=== PATIENT | female | born 1970 | race Caucasian/White ===

== ENCOUNTER 2023-06-18 08:34 | Outpatient (RCR) | payer OTHER, SELFPAY ==
[2023-05-28] VITALS (12 sets, daily range): BP systolic 107–125; BP diastolic 71–88
[2023-05-28] MEDS: GAMMAGARD 100 IV ×7 (10:11→13:48)
[2023-05-28] MEDS: NSS 500 IV (10:15)
[2023-05-28 10:43] LABS: Blood Urea Nitrogen 13 mg/dl (7-17); Calcium 9.4 mg/dl (8.4-10.2); Carbon Dioxide 23 mmol/L (22-30); Chloride 104 mmol/L (98-107); Glucose 108 mg/dl (70-99); Potassium 4.1 mmol/L (3.5-5.1); Sodium 137 mmol/L (135-145); eGFR > 60.00
[2023-06-18] VITALS (11 sets, daily range): BP systolic 94–131; BP diastolic 52–72
[2023-06-18] MEDS: NSS 500 IV (09:08)
[2023-06-18] MEDS: GAMMAGARD 100 IV ×7 (09:10→13:25)
[2023-06-18 10:14] LABS: Blood Urea Nitrogen 15 mg/dl (7-17); Calcium 9.3 mg/dl (8.4-10.2); Carbon Dioxide 25 mmol/L (22-30); Chloride 103 mmol/L (98-107); Glucose 96 mg/dl (70-99); Potassium 4.3 mmol/L (3.5-5.1); Sodium 134 mmol/L (135-145); eGFR > 60.00
== END 2023-06-19 10:27 | disposition home or self-care (01) ==
LOC: OID 08:34
PROVIDERS: ATTENDING PHYSICIAN Specialist; FAMILY PHYSICIAN Family Medicine
DX: G61.81 Chronic inflammatory demyelinating polyneuritis (principal)
CPT/HCPCS: 36415; 80048; 96365; 96366; J1569

== ENCOUNTER 2023-07-09 08:33 | Outpatient (RCR) | payer OTHER, SELFPAY ==
[2023-07-09] VITALS (12 sets, daily range): BP systolic 102–138; BP diastolic 44–77
[2023-07-09] MEDS: NSS 500 IV (09:00)
[2023-07-09] MEDS: GAMMAGARD 100 IV ×7 (09:13→13:25)
[2023-07-09 09:40] LABS: Blood Urea Nitrogen 14 mg/dl (7-17); Calcium 8.8 mg/dl (8.4-10.2); Carbon Dioxide 20 mmol/L (22-30); Chloride 104 mmol/L (98-107); Glucose 102 mg/dl (70-99); Potassium 3.9 mmol/L (3.5-5.1); Sodium 133 mmol/L (135-145); eGFR > 60.00
== END 2023-07-10 09:43 | disposition home or self-care (01) ==
LOC: OID 08:33
PROVIDERS: ATTENDING PHYSICIAN Specialist; FAMILY PHYSICIAN Family Medicine
DX: G61.81 Chronic inflammatory demyelinating polyneuritis (principal)
CPT/HCPCS: 80048; 96365; 96366; J1569

== ENCOUNTER 2023-08-20 10:03 | Outpatient (RCR) | payer OTHER, SELFPAY ==
[2023-07-30] VITALS (12 sets, daily range): BP systolic 113–156; BP diastolic 66–86
[2023-07-30] MEDS: NSS 500 IV (09:05)
[2023-07-30] MEDS: GAMMAGARD 100 IV ×7 (09:06→13:18)
[2023-07-30 09:38] LABS: Blood Urea Nitrogen 11 mg/dl (7-17); Calcium 9.1 mg/dl (8.4-10.2); Carbon Dioxide 22 mmol/L (22-30); Chloride 106 mmol/L (98-107); Glucose 104 mg/dl (70-99); Sodium 134 mmol/L (135-145); eGFR > 60.00
[2023-08-20] VITALS (12 sets, daily range): BP systolic 92–136; BP diastolic 55–89
[2023-08-20] MEDS: NSS 500 IV (10:42)
[2023-08-20] MEDS: GAMMAGARD 100 IV ×7 (10:43→15:08)
[2023-08-20 11:25] LABS: Blood Urea Nitrogen 12 mg/dl (7-17); Calcium 9.7 mg/dl (8.4-10.2); Carbon Dioxide 23 mmol/L (22-30); Chloride 104 mmol/L (98-107); Glucose 96 mg/dl (70-99); Potassium 4.3 mmol/L (3.5-5.1); Sodium 135 mmol/L (135-145); eGFR > 60.00
== END 2023-08-20 23:59 | disposition home or self-care (01) ==
LOC: OID 10:03
PROVIDERS: ATTENDING PHYSICIAN Specialist; FAMILY PHYSICIAN Family Medicine
DX: G61.81 Chronic inflammatory demyelinating polyneuritis (principal)
CPT/HCPCS: 36415; 80048; 96365; 96366; J1569

== ENCOUNTER 2023-09-10 08:34 | Outpatient (RCR) | payer OTHER, SELFPAY ==
[2023-09-10] VITALS (12 sets, daily range): BP systolic 94–113; BP diastolic 46–85
[2023-09-10] MEDS: NSS 500 IV (09:00)
[2023-09-10] MEDS: GAMMAGARD 100 IV ×7 (09:10→13:15)
[2023-09-10 09:54] LABS: Blood Urea Nitrogen 11 mg/dl (7-17); Calcium 9.5 mg/dl (8.4-10.2); Carbon Dioxide 22 mmol/L (22-30); Chloride 103 mmol/L (98-107); Glucose 102 mg/dl (70-99); Potassium 4.4 mmol/L (3.5-5.1); Sodium 135 mmol/L (135-145); eGFR > 60.00
== END 2023-09-11 09:00 | disposition home or self-care (01) ==
LOC: OID 08:34
PROVIDERS: ATTENDING PHYSICIAN Specialist; FAMILY PHYSICIAN Family Medicine
DX: G61.81 Chronic inflammatory demyelinating polyneuritis (principal)
CPT/HCPCS: 36415; 80048; 96365; 96366; J1569

== ENCOUNTER 2023-10-07 08:15 | Outpatient (RCR) | payer OTHER, SELFPAY ==
[2023-10-07] VITALS (12 sets, daily range): BP systolic 99–122; BP diastolic 64–91
[2023-10-07] MEDS: NSS 500 IV (08:52)
[2023-10-07] MEDS: GAMMAGARD 100 IV ×7 (08:53→13:04)
[2023-10-07 10:29] LABS: Blood Urea Nitrogen 15 mg/dl (7-17); Carbon Dioxide 24 mmol/L (22-30); Chloride 105 mmol/L (98-107); Glucose 101 mg/dl (70-99); Potassium 3.9 mmol/L (3.5-5.1); Sodium 136 mmol/L (135-145); eGFR > 60.00
== END 2023-10-08 09:37 | disposition home or self-care (01) ==
LOC: OID 08:15
PROVIDERS: ATTENDING PHYSICIAN Specialist; FAMILY PHYSICIAN Family Medicine
DX: G61.81 Chronic inflammatory demyelinating polyneuritis (principal)
CPT/HCPCS: 36415; 80048; 96365; 96366; J1569

== ENCOUNTER 2023-10-28 08:35 | Outpatient (RCR) | payer OTHER, SELFPAY ==
[2023-10-28] VITALS (11 sets, daily range): BP systolic 100–130; BP diastolic 66–83
[2023-10-28] MEDS: NSS 500 IV (09:07)
[2023-10-28] MEDS: GAMMAGARD 100 IV ×7 (09:10→13:10)
[2023-10-28 10:31] LABS: Blood Urea Nitrogen 15 mg/dl (7-17); Calcium 9.5 mg/dl (8.4-10.2); Carbon Dioxide 24 mmol/L (22-30); Chloride 101 mmol/L (98-107); Glucose 98 mg/dl (70-99); Potassium 4.5 mmol/L (3.5-5.1); Sodium 133 mmol/L (135-145); eGFR > 60.00
== END 2023-10-29 09:27 | disposition home or self-care (01) ==
LOC: OID 08:35
PROVIDERS: ATTENDING PHYSICIAN Specialist; FAMILY PHYSICIAN Family Medicine
DX: G61.81 Chronic inflammatory demyelinating polyneuritis (principal)
CPT/HCPCS: 80048; 96361; 96365; 96366; J1569

== ENCOUNTER 2023-12-16 08:30 | Outpatient (RCR) | payer OTHER, SELFPAY ==
[2023-11-25] VITALS (12 sets, daily range): BP systolic 100–119; BP diastolic 63–85
[2023-11-25] MEDS: NSS 500 IV (09:00)
[2023-11-25] MEDS: GAMMAGARD 100 IV ×7 (09:04→13:10)
[2023-12-16] VITALS (11 sets, daily range): BP systolic 92–123; BP diastolic 63–86
[2023-12-16] MEDS: NSS 500 IV (09:14)
[2023-12-16] MEDS: GAMMAGARD 100 IV ×7 (09:18→13:24)
[2023-12-16 10:12] LABS: Blood Urea Nitrogen 10 mg/dl (7-17); Calcium 9.6 mg/dl (8.4-10.2); Carbon Dioxide 22 mmol/L (22-30); Chloride 104 mmol/L (98-107); Glucose 101 mg/dl (70-99); Sodium 138 mmol/L (135-145); eGFR > 60.00
== END 2023-12-17 08:59 | disposition home or self-care (01) ==
LOC: OID 08:30
PROVIDERS: ATTENDING PHYSICIAN Specialist; FAMILY PHYSICIAN Family Medicine
DX: G61.81 Chronic inflammatory demyelinating polyneuritis (principal)
CPT/HCPCS: 80048; 96361; 96365; 96366; J1569

== ENCOUNTER 2024-01-06 08:29 | Outpatient (RCR) | payer OTHER, SELFPAY ==
[2024-01-06] VITALS (11 sets, daily range): BP systolic 98–120; BP diastolic 55–80; BMI 23.9
[2024-01-06] MEDS: NSS 500 IV (08:50)
[2024-01-06] MEDS: GAMMAGARD 100 IV ×7 (08:59→13:03)
== END 2024-01-07 10:27 | disposition home or self-care (01) ==
LOC: OID 08:29
PROVIDERS: ATTENDING PHYSICIAN Specialist; FAMILY PHYSICIAN Family Medicine
DX: G61.81 Chronic inflammatory demyelinating polyneuritis (principal)
CPT/HCPCS: 96361; 96365; 96366; J1569

== ENCOUNTER 2024-02-17 08:32 | Outpatient (RCR) | payer OTHER, SELFPAY ==
[2024-01-27] VITALS (12 sets, daily range): BP systolic 81–114; BP diastolic 55–72
[2024-01-27] MEDS: NSS 500 IV (09:59)
[2024-01-27] MEDS: GAMMAGARD 100 IV ×7 (10:00→14:14)
[2024-01-27 10:34] LABS: Blood Urea Nitrogen 14 mg/dl (7-17); Calcium 9.4 mg/dl (8.4-10.2); Carbon Dioxide 24 mmol/L (22-30); Chloride 102 mmol/L (98-107); Glucose 105 mg/dl (70-99); Potassium 4.4 mmol/L (3.5-5.1); Sodium 139 mmol/L (135-145); eGFR > 60.00
[2024-02-17] VITALS (12 sets, daily range): BP systolic 88–108; BP diastolic 54–76
[2024-02-17] MEDS: NSS 500 IV (08:57)
[2024-02-17] MEDS: GAMMAGARD 100 IV ×7 (08:58→13:06)
== END 2024-02-18 08:47 | disposition home or self-care (01) ==
LOC: OID 08:32
PROVIDERS: ATTENDING PHYSICIAN Specialist; FAMILY PHYSICIAN Family Medicine
DX: G61.81 Chronic inflammatory demyelinating polyneuritis (principal)
CPT/HCPCS: 80048; 96365; 96366; J1569

== ENCOUNTER 2024-03-09 08:27 | Outpatient (RCR) | payer OTHER, SELFPAY ==
[2024-03-09] VITALS (12 sets, daily range): BP systolic 90–121; BP diastolic 46–74
[2024-03-09] MEDS: NSS 500 IV (09:07)
[2024-03-09] MEDS: GAMMAGARD 100 IV ×7 (09:08→13:22)
[2024-03-09 09:38] LABS: Blood Urea Nitrogen 13 mg/dl (7-17); Calcium 9.3 mg/dl (8.4-10.2); Carbon Dioxide 21 mmol/L (22-30); Chloride 104 mmol/L (98-107); Glucose 100 mg/dl (70-99); Potassium 4.6 mmol/L (3.5-5.1); Sodium 140 mmol/L (135-145); eGFR > 60.00
== END 2024-03-10 08:37 | disposition home or self-care (01) ==
LOC: OID 08:27
PROVIDERS: ATTENDING PHYSICIAN Specialist; FAMILY PHYSICIAN Family Medicine
DX: G61.81 Chronic inflammatory demyelinating polyneuritis (principal)
CPT/HCPCS: 36415; 80048; 96365; 96366; J1569

== ENCOUNTER 2024-04-20 08:39 | Outpatient (RCR) | payer OTHER, SELFPAY ==
[2024-03-30] VITALS (11 sets, daily range): BP systolic 85–110; BP diastolic 58–81
[2024-03-30] MEDS: NSS 500 IV (09:09)
[2024-03-30] MEDS: GAMMAGARD 100 IV ×7 (09:09→13:08)
[2024-04-20] VITALS (12 sets, daily range): BP systolic 95–107; BP diastolic 50–76
[2024-04-20] MEDS: NSS 500 IV (09:09)
[2024-04-20] MEDS: GAMMAGARD 100 IV ×7 (09:10→13:32)
[2024-04-20 10:30] LABS: Blood Urea Nitrogen 14 mg/dl (7-17); Calcium 8.9 mg/dl (8.4-10.2); Carbon Dioxide 20 mmol/L (22-30); Chloride 103 mmol/L (98-107); Glucose 92 mg/dl (70-99); Sodium 136 mmol/L (135-145); eGFR > 60.00
[2024-04-20 10:34] LABS: Potassium 4.4 mmol/L (3.5-5.1)
== END 2024-04-21 15:35 | disposition home or self-care (01) ==
LOC: OID 08:39
PROVIDERS: ATTENDING PHYSICIAN Specialist; FAMILY PHYSICIAN Family Medicine
DX: G61.81 Chronic inflammatory demyelinating polyneuritis (principal)
CPT/HCPCS: 80048; 96365; 96366; J1569

== ENCOUNTER 2024-05-11 08:57 | Outpatient (RCR) | payer OTHER, SELFPAY ==
[2024-05-11] VITALS (12 sets, daily range): BP systolic 91–120; BP diastolic 46–68
[2024-05-11] MEDS: GAMMAGARD 100 IV ×7 (09:30→13:30)
== END 2024-05-22 23:59 | disposition home or self-care (01) ==
LOC: OID 08:57
PROVIDERS: ATTENDING PHYSICIAN Specialist; FAMILY PHYSICIAN Family Medicine
DX: G61.81 Chronic inflammatory demyelinating polyneuritis (principal)
CPT/HCPCS: 96365; 96366; J1569

== ENCOUNTER 2024-06-01 08:32 | Outpatient (RCR) | payer OTHER, SELFPAY ==
[2024-06-01] VITALS (12 sets, daily range): BP systolic 97–105; BP diastolic 50–79
[2024-06-01] MEDS: NSS 500 IV (09:03)
[2024-06-01] MEDS: GAMMAGARD 100 IV ×7 (09:04→13:06)
[2024-06-01 10:06] LABS: Blood Urea Nitrogen 16 mg/dl (7-17); Calcium 9.3 mg/dl (8.4-10.2); Carbon Dioxide 24 mmol/L (22-30); Chloride 103 mmol/L (98-107); Glucose 96 mg/dl (70-99); Potassium 4.6 mmol/L (3.5-5.1); Sodium 137 mmol/L (135-145); eGFR > 60.00
== END 2024-06-02 09:33 | disposition home or self-care (01) ==
LOC: OID 08:32
PROVIDERS: ATTENDING PHYSICIAN Specialist; FAMILY PHYSICIAN Family Medicine
DX: G61.81 Chronic inflammatory demyelinating polyneuritis (principal)
CPT/HCPCS: 80048; 96365; 96366; J1569

== ENCOUNTER 2024-07-13 08:42 | Outpatient (RCR) | payer OTHER, SELFPAY ==
[2024-06-22] VITALS (11 sets, daily range): BP systolic 96–111; BP diastolic 64–83
[2024-06-22] MEDS: NSS 500 IV (09:01)
[2024-06-22] MEDS: GAMMAGARD 100 IV ×7 (09:02→13:07)
[2024-07-13] VITALS (11 sets, daily range): BP systolic 79–113; BP diastolic 52–71
[2024-07-13] MEDS: NSS 500 IV (09:00)
[2024-07-13] MEDS: GAMMAGARD 100 IV ×7 (09:09→13:19)
[2024-07-13 13:16] LABS: Blood Urea Nitrogen 16 mg/dl (7-17); Calcium 9.5 mg/dl (8.4-10.2); Carbon Dioxide 22 mmol/L (22-30); Chloride 107 mmol/L (98-107); Glucose 99 mg/dl (70-99); Potassium 4.2 mmol/L (3.5-5.1); Sodium 139 mmol/L (135-145); eGFR > 60.00
== END 2024-07-14 08:31 | disposition home or self-care (01) ==
LOC: OID 08:42
PROVIDERS: ATTENDING PHYSICIAN Specialist; FAMILY PHYSICIAN Family Medicine
DX: G61.81 Chronic inflammatory demyelinating polyneuritis (principal)
CPT/HCPCS: 80048; 96365; 96366; J1569

== ENCOUNTER 2024-08-03 08:35 | Outpatient (RCR) | payer OTHER, SELFPAY ==
[2024-08-03] VITALS (13 sets, daily range): BP systolic 96–115; BP diastolic 47–71
[2024-08-03] MEDS: GAMMAGARD 100 IV ×7 (09:04→13:22)
[2024-08-03] MEDS: NSS 500 IV (09:04)
== END 2024-08-04 11:18 | disposition home or self-care (01) ==
LOC: OID 08:35
PROVIDERS: ATTENDING PHYSICIAN Specialist; FAMILY PHYSICIAN Family Medicine
DX: G61.81 Chronic inflammatory demyelinating polyneuritis (principal)
CPT/HCPCS: 96365; 96366; J1569

== ENCOUNTER 2024-09-15 08:43 | Outpatient (RCR) | payer OTHER, SELFPAY ==
[2024-08-26] VITALS (13 sets, daily range): BP systolic 99–123; BP diastolic 56–91
[2024-08-26] MEDS: NSS 500 IV (09:02)
[2024-08-26] MEDS: GAMMAGARD 100 IV ×7 (09:08→13:29)
[2024-08-26 10:19] LABS: Blood Urea Nitrogen 15 mg/dl (7-17); Calcium 9.4 mg/dl (8.4-10.2); Carbon Dioxide 25 mmol/L (22-30); Chloride 105 mmol/L (98-107); Glucose 93 mg/dl (70-99); Potassium 4.4 mmol/L (3.5-5.1); Sodium 138 mmol/L (135-145); eGFR > 60.00
[2024-09-15] VITALS (10 sets, daily range): BP systolic 97–109; BP diastolic 40–65
[2024-09-15] MEDS: NSS 500 IV (09:09)
[2024-09-15] MEDS: GAMMAGARD 100 IV ×7 (09:10→13:18)
== END 2024-09-16 11:32 | disposition home or self-care (01) ==
LOC: OID 08:43
PROVIDERS: ATTENDING PHYSICIAN Specialist; FAMILY PHYSICIAN Family Medicine
DX: G61.81 Chronic inflammatory demyelinating polyneuritis (principal)
CPT/HCPCS: 36415; 80048; 96365; 96366; J1569

== ENCOUNTER 2024-10-06 08:35 | Outpatient (RCR) | payer OTHER, SELFPAY ==
[2024-10-06] VITALS (11 sets, daily range): BP systolic 102–125; BP diastolic 53–77
[2024-10-06] MEDS: GAMMAGARD 100 IV ×7 (09:04→13:06)
[2024-10-06] MEDS: NSS 500 IV (09:04)
[2024-10-06 09:26] LABS: Blood Urea Nitrogen 16 mg/dl (7-17); Calcium 9.3 mg/dl (8.4-10.2); Carbon Dioxide 23 mmol/L (22-30); Chloride 109 mmol/L (98-107); Glucose 113 mg/dl (70-99); Potassium 4.1 mmol/L (3.5-5.1); Sodium 138 mmol/L (135-145); eGFR > 60.00
[2024-10-06 09:44] LABS: Free T4 0.76 ng/dl (0.78-2.19)
[2024-10-06 09:57] LABS: TSH 2.93 uIU/ml (0.47-4.68)
[2024-10-06 10:33] LABS: Folate 4.4 ng/ml (2.76-20)
[2024-10-06 15:24] LABS: Vitamin B12 730 pg/ml (239-931)
== END 2024-10-07 10:27 | disposition home or self-care (01) ==
LOC: OID 08:35
PROVIDERS: ATTENDING PHYSICIAN Specialist; FAMILY PHYSICIAN Family Medicine
DX: G61.81 Chronic inflammatory demyelinating polyneuritis (principal); G56.20 Lesion of ulnar nerve, unspecified upper limb
CPT/HCPCS: 36415; 80048; 82607; 82746; 84439; 84443; 96365; 96366; J1569

== ENCOUNTER 2024-11-16 08:29 | Outpatient (RCR) | payer OTHER, SELFPAY ==
[2024-10-27] VITALS (12 sets, daily range): BP systolic 103–134; BP diastolic 59–86
[2024-10-27] MEDS: GAMMAGARD 100 IV ×7 (08:46→13:12)
[2024-10-27] MEDS: NSS 500 IV (08:46)
[2024-11-16] VITALS (11 sets, daily range): BP systolic 102–124; BP diastolic 55–89
[2024-11-16] MEDS: NSS 500 IV (09:12)
[2024-11-16] MEDS: GAMMAGARD 100 IV ×7 (09:13→13:16)
[2024-11-16 11:06] LABS: Blood Urea Nitrogen 15 mg/dl (7-17); Calcium 9.0 mg/dl (8.4-10.2); Carbon Dioxide 25 mmol/L (22-30); Chloride 105 mmol/L (98-107); Glucose 99 mg/dl (70-99); Potassium 4.2 mmol/L (3.5-5.1); Sodium 134 mmol/L (135-145); eGFR > 60.00
== END 2024-11-19 23:59 | disposition home or self-care (01) ==
LOC: OID 08:29
PROVIDERS: ATTENDING PHYSICIAN Specialist; FAMILY PHYSICIAN Family Medicine
DX: G61.81 Chronic inflammatory demyelinating polyneuritis (principal)
CPT/HCPCS: 80048; 96365; 96366; J1569

== ENCOUNTER 2024-12-07 08:42 | Outpatient (RCR) | payer OTHER, SELFPAY ==
[2024-12-07] VITALS (12 sets, daily range): BP systolic 94–119; BP diastolic 53–74
[2024-12-07] MEDS: NSS 500 IV (09:05)
[2024-12-07] MEDS: GAMMAGARD 100 IV ×7 (09:06→13:06)
== END 2024-12-08 09:23 | disposition home or self-care (01) ==
LOC: OID 08:42
PROVIDERS: ATTENDING PHYSICIAN Specialist; FAMILY PHYSICIAN Family Medicine
DX: G61.81 Chronic inflammatory demyelinating polyneuritis (principal)
CPT/HCPCS: 96365; 96366; J1569

== ENCOUNTER 2024-12-28 08:29 | Outpatient (RCR) | payer OTHER, SELFPAY ==
[2024-12-28] VITALS (11 sets, daily range): BP systolic 101–121; BP diastolic 65–77
[2024-12-28] MEDS: NSS 500 IV (08:52)
[2024-12-28] MEDS: GAMMAGARD 100 IV ×7 (08:53→12:58)
[2024-12-28 09:38] LABS: Blood Urea Nitrogen 14 mg/dl (7-17); Calcium 9.0 mg/dl (8.4-10.2); Carbon Dioxide 24 mmol/L (22-30); Chloride 108 mmol/L (98-107); Glucose 96 mg/dl (70-99); Potassium 4.5 mmol/L (3.5-5.1); Sodium 138 mmol/L (135-145); eGFR > 60.00
== END 2025-01-15 12:44 | disposition home or self-care (01) ==
LOC: OID 08:29
PROVIDERS: ATTENDING PHYSICIAN Specialist; FAMILY PHYSICIAN Family Medicine
DX: G61.81 Chronic inflammatory demyelinating polyneuritis (principal)
CPT/HCPCS: 36415; 80048; 96365; 96366; J1569

== ENCOUNTER 2025-02-10 08:06 | Outpatient (RCR) | payer OTHER, SELFPAY ==
[2025-01-20] VITALS (12 sets, daily range): BP systolic 96–124; BP diastolic 52–86
[2025-01-20] MEDS: NSS 500 IV (08:50)
[2025-01-20] MEDS: GAMMAGARD 100 IV ×7 (09:04→13:08)
[2025-02-10] VITALS (12 sets, daily range): BP systolic 94–138; BP diastolic 51–72
[2025-02-10] MEDS: NSS 500 IV (08:43)
[2025-02-10] MEDS: GAMMAGARD 100 IV ×7 (08:44→12:57)
[2025-02-10 09:36] LABS: Blood Urea Nitrogen 14 mg/dl (7-17); Calcium 8.8 mg/dl (8.4-10.2); Carbon Dioxide 24 mmol/L (22-30); Chloride 106 mmol/L (98-107); Glucose 120 mg/dl (70-99); Potassium 4.1 mmol/L (3.5-5.1); Sodium 135 mmol/L (135-145); eGFR > 60.00
== END 2025-02-11 09:28 | disposition home or self-care (01) ==
LOC: OID 08:06
PROVIDERS: ATTENDING PHYSICIAN Specialist; FAMILY PHYSICIAN Family Medicine
DX: G61.81 Chronic inflammatory demyelinating polyneuritis (principal)
CPT/HCPCS: 80048; 96365; 96366; J1569

== ENCOUNTER 2025-03-01 08:24 | Outpatient (RCR) | payer OTHER, SELFPAY ==
[2025-03-01] VITALS (12 sets, daily range): BP systolic 108–132; BP diastolic 55–72
[2025-03-01] MEDS: NSS 500 IV (09:08)
[2025-03-01] MEDS: GAMMAGARD 100 IV ×7 (09:08→13:19)
== END 2025-03-02 09:34 | disposition home or self-care (01) ==
LOC: OID 08:24
PROVIDERS: ATTENDING PHYSICIAN Specialist; FAMILY PHYSICIAN Family Medicine
DX: G61.81 Chronic inflammatory demyelinating polyneuritis (principal)
CPT/HCPCS: 96365; 96366; J1569

== ENCOUNTER 2025-04-12 08:43 | Outpatient (RCR) | payer OTHER, SELFPAY ==
[2025-03-22] VITALS (11 sets, daily range): BP systolic 91–112; BP diastolic 45–66
[2025-03-22] MEDS: NSS 500 IV (09:09)
[2025-03-22] MEDS: GAMMAGARD 100 IV ×7 (09:10→13:12)
[2025-03-22 10:02] LABS: Blood Urea Nitrogen 12 mg/dl (7-17); Calcium 8.9 mg/dl (8.4-10.2); Carbon Dioxide 24 mmol/L (22-30); Chloride 105 mmol/L (98-107); Glucose 97 mg/dl (70-99); Potassium 4.3 mmol/L (3.5-5.1); Sodium 136 mmol/L (135-145); eGFR > 60.00
[2025-04-12] VITALS (11 sets, daily range): BP systolic 105–120; BP diastolic 64–76; BMI 24.3
[2025-04-12] MEDS: NSS 500 IV (09:00)
[2025-04-12] MEDS: GAMMAGARD 100 IV ×7 (09:06→13:08)
== END 2025-04-13 09:30 | disposition home or self-care (01) ==
LOC: OID 08:43
PROVIDERS: ATTENDING PHYSICIAN Specialist; FAMILY PHYSICIAN Family Medicine
DX: G61.81 Chronic inflammatory demyelinating polyneuritis (principal)
CPT/HCPCS: 36415; 80048; 96361; 96365; 96366; J1569